=== PATIENT | female | born 1945 | race Caucasian/White ===

== ENCOUNTER → 2016-11-04 | Outpatient (REF) | payer OTHER ==
[2016-11-04 20:08] LABS: PERCENT SATURATION 18.7 % (13.2-37.4)
== END ==
LOC: M LAB REF 17:43
PROVIDERS: ATTEND Internal Medicine Nephrology
DX: N18.9 Chronic kidney disease, unspecified (principal); D63.1 Anemia in chronic kidney disease

== ENCOUNTER → 2017-01-07 | Outpatient (REF) | payer OTHER | LOC: M LAB REF 11:15 | DX: C44.329 Squamous cell carcinoma of skin of other parts of face (principal) ==

== ENCOUNTER → 2017-03-24 | Outpatient (CLI) | payer OTHER ==
--- NOTE | 2017-03-24 16:23 | REP ---
Nuclear renal scintigraphy with differential flow and function analysis: History: Chronic kidney disease, stage IV. Essential hypertension. No comparison studies. Technique: 8.8 mCi of technetium 99m MAG3 is injected and posterior flow and excretory phase images are acquired. Renal cortical regions of interest are drawn and time activity curves are plotted for renal function analysis. Scintigraphic findings: Posterior flow study shows symmetric albeit somewhat sluggish perfusion bilaterally. Excretory phase images show no evidence of intrarenal mass on either side. Renal collecting system labeling is observed bilaterally at 3 minutes and there is no evidence of obstructive uropathy. There is some retention of overall extra urinary body background activity consistent with impaired renal excretory function. Pre and postvoid images are unremarkable. Differential renal function analysis is normal with 54% of overall renal cortical counts coming from the left kidney and 46% coming from the right kidney. Time to peak activity is normal on the left at 3 minutes and the right at 2 minutes. Time to half max activity is delayed bilaterally measured at 25 minutes on the left and right. Normal time to half max activity is 10.5-11.0 minutes. Impression: Overall impaired renal excretory function. No evidence of obstructive uropathy. Symmetric renal bed perfusion. Signed by Etienne Estrada MD 03/24/2017 05:16 P
== END ==
LOC: M RAD 13:46
PROVIDERS: ATTEND Internal Medicine Nephrology
DX: N18.4 Chronic kidney disease, stage 4 (severe) (principal)

== ENCOUNTER → 2020-12-10 | Outpatient (REF) | payer MEDICARE, OTHER | LOC: M LAB REF 17:20 | PROVIDERS: ATTEND Internal Medicine Nephrology | DX: N18.4 Chronic kidney disease, stage 4 (severe) (principal) ==

== ENCOUNTER → 2021-04-13 | Outpatient (REF) | payer MEDICARE, OTHER | LOC: M LAB REF 17:19 | PROVIDERS: ATTEND Internal Medicine Nephrology | DX: N18.4 Chronic kidney disease, stage 4 (severe) (principal) ==

== ENCOUNTER → 2021-07-14 | Outpatient (REF) | payer MEDICARE, OTHER ==
[2021-07-14 18:55] LABS: FERRITIN 519 NG/ML (8-252); IRON (FE) 83 UG/DL (50-170); MAGNESIUM LEVEL 2.3 MG/DL (1.8-2.4); PERCENT SATURATION 27.9 % (13.2-45.0); TOTAL IRON BINDING CAPACITY 297 UG/DL (250-450); TOTAL PROTEIN 7.2 GM/DL (6.4-8.2)
[2021-07-15 10:36] LABS: ALBUMIN % 56.9 % (55.8-66.1); ALPHA-2-GLOBULINS 0.87 GM/DL (0.42-0.99); ALPHA-2-GLOBULINS % 12.1 % (7.1-11.8); BETA-1-GLOBULINS 0.38 GM/DL (0.28-0.60); BETA-1-GLOBULINS % 5.3 % (4.7-7.2); BETA-2-GLOBULINS 0.44 GM/DL (0.19-0.55); BETA-2-GLOBULINS % 6.1 % (3.2-6.5); GAMMA GLOBULIN % 14.6 % (11.1-18.8); GAMMA GLOBULINS 1.05 GM/DL (0.65-1.58)
[2021-07-16 18:07] LABS: FREE KAPPA LIGHT CHAINS SERUM 77.9 mg/L (3.3-19.4); FREE LAMBDA LIGHT CHAINS SERUM 56.3 mg/L (5.7-26.3); KAPPA/LAMBDA RATIO SERUM 1.38 (0.26-1.65)
== END ==
LOC: M LAB REF 18:05
PROVIDERS: ATTEND Internal Medicine Nephrology
DX: N18.4 Chronic kidney disease, stage 4 (severe) (principal); D63.1 Anemia in chronic kidney disease

== ENCOUNTER → 2021-07-21 | Outpatient (CLI) | payer MEDICARE, OTHER ==
--- NOTE | 2021-07-21 13:42 | REP ---
INDICATION: CKD 4 COMPARISON: None. TECHNIQUE: Real time compression and duplex Doppler evaluation of the Bilateral upper extremity deep venous system is performed. FINDINGS: The Bilateral subclavian, jugular, axillary, brachial, basilic and cephalic veins are fully compressible where accessible with transducer pressure, and demonstrate no intraluminal thrombus and normal venous waveforms. There is no evidence of deep venous thrombosis. Right: Basilic vein size (mm)/ Cephalic vein size (mm) Upper humerus: 5/4 Lower humerus:5/5 Upper forearm: 3/2 Lower forearm/wrist: 4/2 Median cubital:4 Right arterial structures: Peak systolic velocity (cm/s)/waveform/size (mm) Axillary: 125.3/triphasic/5 Brachial: 104.3/triphasic/5 Radial: 64.0/triphasic/2 Ulnar:74.1/triphasic/2 Left: Basilic vein size (mm)/ Cephalic vein size (mm) Upper humerus: 4/4 Lower humerus:4/4 Upper forearm: 2/2 Lower forearm/wrist:1/2 Median cubital:2 Left arterial structures: Peak systolic velocity (cm/s)/waveform/size (mm) Axillary: 109.9/triphasic/5 Brachial: 70.8/triphasic/5 Radial: 59.4/triphasic/2 Ulnar: 70.0/triphasic/2 IMPRESSION: No evidence of deep venous thrombosis of the Bilateral upper extremity deep vein system. Arterial and venous sizes are given above. <Electronically signed by Dustin Abraham > 07/21/21 [id number]
== END ==
LOC: M RAD 12:05
PROVIDERS: ATTEND Internal Medicine Nephrology
DX: N18.4 Chronic kidney disease, stage 4 (severe) (principal)

== ENCOUNTER → 2021-08-28 | Outpatient (CLI) | payer MEDICARE, OTHER ==
[~2021-08-28] MED LIST: AMLO1TAB24 PO; CALC1CAP31 PO; EZET10TA21 PO; FISH1000 PO; IRON65TA2 PO; LUTE6CAP9 PO; METO1TAB33 PO; VITMTA PO
== END ==
LOC: M LABSMTC 11:05
PROVIDERS: ATTEND Anesthesiology
DX: Z01.812 Encounter for preprocedural laboratory examination (principal); Z20.822 Contact with and (suspected) exposure to COVID-19

== ENCOUNTER 2021-09-02 08:47 | Day surgery (SDC) | payer MEDICARE, OTHER ==
[~2021-09-02] VITALS: Ht 162.6 cm; Wt 80.5 kg
[~2021-09-02 08:47] MED LIST changes: +DESFLURANE 240 ML INHALANT As Ordered ONE; +LR 1,000 ML IV ONE
[2021-09-02 09:51] LABS: POTASSIUM SERUM 4.2 MEQ/L (3.5-5.1)
[2021-09-02] MEDS ORDERED: dexameTHASONE 4 MG/ML 1ML VIAL (J1100 PER 1MG) As Ordered ONE (11:00)
[2021-09-02] MEDS ORDERED: propofoL 200 MG/20 ML VIAL As Ordered ONE (11:00)
[2021-09-02] MEDS ORDERED: LIDOCAINE 2% 100MG/5ML SDV (FOR ANES.) As Ordered ONE (11:00)
[2021-09-02] MEDS ORDERED: fentaNYL 100 MCG/2 ML INJECTION (J3010) As Ordered ONE (11:00)
[2021-09-02] MEDS ORDERED: ONDANSETRON 4MG/2ML VIAL As Ordered ONE (11:00)
[2021-09-02] MEDS ORDERED: ACETAMINOPHEN 1000MG 100ML IV BTL (OFIRMEV) (J0131 PER 10MG) As Ordered ONE ×2 (11:50→14:55)
[2021-09-02] MEDS ORDERED: BUPIVACAINE HCL 0.5% 30 ML VIAL As Ordered ONE (12:26)
[2021-09-02] MEDS ORDERED: THROMBIN SOLN 5,000 UNITS VIAL As Ordered ONE (12:26)
[2021-09-02] MEDS: ceFAZolin SOD 1 GM in D5W MINI-BAG PLUS 50 ML IV ONE (12:53)
[2021-09-02] MEDS: LIDOCAINE 1% MDV 20ML VIAL As Ordered ONE (13:25)
[2021-09-02] MEDS ORDERED: BACITRACIN OINTMENT 30GM TUBE As Ordered ONE (13:29)
[2021-09-02] MEDS ORDERED: ePHEDrine SULFATE 25 MG/5 ML(5MG/ML) SYRINGE As Ordered ONE (15:07)
[2021-09-02] MEDS ORDERED: LR 1,000 ML IV SCH (15:50)
[2021-09-02] MEDS ORDERED: fentaNYL 100 MCG/2 ML INJECTION (J3010) IV PRN (15:50)
[2021-09-02] MEDS ORDERED: oxyCODONE 5MG TAB PO PRN (15:50)
[2021-09-02] MEDS ORDERED: ONDANSETRON 4MG/2ML VIAL IV PRN (15:50)
[2021-09-02 16:35] VITALS: BP 137/71
--- NOTE | 2021-09-03 00:40 | ECGEPIP ---
[facility] Test Date: 2021-09-02 Pat Name: VANE ALMANZAR Department: Room: - Gender: Female Disability Aide: PEEWEE : 1945 Requested By: JESUS Avila Order Number: [id number] Reading MD: Edvin Kimbrough Measurements Intervals [place] Rate: 60 P: 57 MD: [id number] QRS: 41 QRSD: 84 T: 60 QT: 406 QTc: 406 Interpretive Statements Normal sinus rhythm No prior tracing in the system Electronically Signed on 09-03-2021 0:40:17 EST by Edvin Kimbrough
--- NOTE | 2021-09-17 11:43 | ROOPDOC ---
[facility] Report Of Operation Report of Operation DATE OF PROCEDURE: 09/02/21 PREPROCEDURE DIAGNOSES: Renal failure POSTPROCEDURE DIAGNOSES: Renal failure PROCEDURE PERFORMED: Left arm Brachio-Cephalic AV fistula creation SURGEON: Padmini Puente MD ANESTHESIA: MAC and local ESTIMATED BLOOD LOSS: Approximately 10 mL. COMPLICATIONS: None REMARKS: Palpable radial pulse and thrill in fistula FINDINGS: Good size cephalic vein and brachial artery DESCRIPTION OF PROCEDURE: The patient was brought to the operating room and placed on the operating room table in supine position. After adequate anesthesia was was induced, the patients left arm was then prepped and draped in standard surgical fashion. A linear incision was made with a 15-blade scalpel in between the brachial artery and the cephalic vein; which were identified and marked under ultrasound guidance just proximal to the antecubital fossa. Dissection through subcutaneous tissue was performed using electrocautery. The cephalic vein was identified and dissected free from its surrounding tissues. Several branches were tied with 3-0 silk suture and ligated. A long segment of cephalic vein was freed. Attention was then made towards the brachial artery. The fascia was encountered and incised with Metzenbaum scissors. The neurovascular bundle was encountered and a 3 cm length of the brachial artery was isolated and encircled with silastic vessel loops proximally and distally. Patient was administered a bolus of 3000 units of IV heparin. The length of the cephalic vein was isolated and ligated distally at the level of the antecubital fossa using 2-0 silk suture. An arteriotomy was created with an 11-blade scalpel and extended with Sloan scissors on the brachial artery. The end of the cephalic vein was trimmed for appropriate length and an end-to-side anastomosis was created with two 6-0 Prolene sutures. Local intra-arterial heparinization was administered for this segment of the procedure. Upon release of the silastic loops, prograde flow into the brachial artery was permitted, with good hemostasis. A good palpable thrill was noted along the length of the fistula. There was also a good palpable radial pulse. The wound was irrigated and then closed in layers using 2-0 and 4-0 Vicryl sutures. The skin closed using running 4-0 Monocryl. Dermabond, sterile dressings and an NAOMIE wrap were then applied. The patient tolerated the procedure well and was transferred to recovery room in stable condition. PADMINI PUENTE MD Sep 02, 2021 15:44
== END 2021-09-02 16:39 | disposition home or self-care (01) ==
LOC: M SDC 08:47
PROVIDERS: ATTEND Surgery Vascular Surgery
DX: N18.4 Chronic kidney disease, stage 4 (severe) (principal); D63.1 Anemia in chronic kidney disease; I12.9 Hypertensive chronic kidney disease with stage 1 through stage 4 chronic kidney disease, or unspecified chronic kidney disease; N25.81 Secondary hyperparathyroidism of renal origin; Z79.899 Other long term (current) drug therapy; Z88.8 Allergy status to other drugs, medicaments and biological substances; Z90.710 Acquired absence of both cervix and uterus
CPT/HCPCS: 36415; 36821; 84132; 93005; J0131; J0690; J1100; J1644; J2405; J3010; U0002

== ENCOUNTER → 2021-10-14 | Outpatient (REF) | payer MEDICARE, OTHER ==
[~2021-10-14] MED LIST changes: -DESFLURANE 240 ML INHALANT As Ordered ONE; -LR 1,000 ML IV ONE
== END ==
LOC: M LAB REF 12:51
PROVIDERS: ATTEND Internal Medicine Nephrology
DX: N18.4 Chronic kidney disease, stage 4 (severe) (principal)

== ENCOUNTER → 2021-11-25 | Outpatient (CLI) | payer MEDICARE, OTHER | LOC: M RAD 13:00 | PROVIDERS: ATTEND Nurse Practitioner Family | DX: T82.590A Other mechanical complication of surgically created arteriovenous fistula, initial encounter (principal); N18.4 Chronic kidney disease, stage 4 (severe) ==

== ENCOUNTER → 2023-03-10 | Outpatient (REF) | payer MEDICARE, OTHER, BC ==
[2023-03-10 18:43] LABS: PERCENT SATURATION 25.6 % (13.2-45.0)
== END ==
LOC: M LAB REF 17:17
PROVIDERS: ATTEND Nurse Practitioner Family
DX: D50.9 Iron deficiency anemia, unspecified (principal)

== ENCOUNTER 2023-04-19 09:52 | Day surgery (SDC) | payer MEDICARE, BC ==
[~2023-04-19] VITALS: Ht 165.1 cm; Wt 73.5 kg
[~2023-04-19 09:52] MED LIST changes: +NS 1,000 ML IV ONE; +PRES10CA2 PO; +RENATAB6 PO
[2023-04-19] MEDS ORDERED: propofoL 200 MG/20 ML VIAL As Ordered ONE ×2 (10:50→12:47)
[2023-04-19 13:12] VITALS: BP 154/67; O2SAT 100
== END 2023-04-19 13:14 | disposition home or self-care (01) ==
LOC: M OPP 09:52
PROVIDERS: ATTEND Internal Medicine Gastroenterology
DX: D12.0 Benign neoplasm of cecum (principal); Z98.0 Intestinal bypass and anastomosis status; K57.30 Diverticulosis of large intestine without perforation or abscess without bleeding; R19.4 Change in bowel habit; Z80.0 Family history of malignant neoplasm of digestive organs; Z79.899 Other long term (current) drug therapy; Z88.6 Allergy status to analgesic agent

== ENCOUNTER → 2024-11-22 | Outpatient (REF) | payer MEDICARE, OTHER, BC ==
[~2024-11-22] MED LIST changes: -NS 1,000 ML IV ONE
[2024-11-22 18:57] LABS: HEPATITIS B SURFACE ANTIBODY POSITIVE (POSITIVE)
[2024-11-22 19:08] LABS: HEPATITIS B SURFACE ANTIGEN NEGATIVE (NEGATIVE)
[2024-11-22 19:29] LABS: HEPATITIS B CORE ANTIBODY IGM NEGATIVE (NEGATIVE); HEPATITIS C VIRUS ABY INDEX 0.05 INDEX (<0.8)
== END ==
LOC: M LAB REF 17:27
PROVIDERS: ATTEND Nurse Practitioner Family
DX: N18.6 End stage renal disease (principal); Z11.59 Encounter for screening for other viral diseases

== ENCOUNTER → 2025-06-03 | Outpatient (REF) ==
[~2025-06-03] MED LIST changes: -EZET10TA21 PO; +EZET10TA57 PO
== END ==
LOC: M CFLAB 13:14
DX: Z01.89 Encounter for other specified special examinations (principal)

== ENCOUNTER 2025-06-11 16:24 | Outpatient (CLI) | payer MEDICARE, BC ==
[2025-06-11 16:47] VITALS: BP 135/63; O2SAT 98
[2025-06-11] MEDS: BELATACEPT IV ONE (17:13)
[2025-06-11] MEDS: NS IV ONE (17:13)
[2025-06-11 17:51] VITALS: BP 149/65; O2SAT 99
== END 2025-06-11 17:49 ==
LOC: M INFU 16:24
PROVIDERS: ATTEND Internal Medicine Nephrology
DX: Z94.0 Kidney transplant status (principal); Z88.8 Allergy status to other drugs, medicaments and biological substances
CPT/HCPCS: 96365; J0485

== ENCOUNTER 2025-06-25 16:18 | Outpatient (CLI) | payer MEDICARE, BC ==
[~2025-06-25] VITALS: Ht 157.5 cm; Wt 64.0 kg
[2025-06-25 16:49] VITALS: BP 152/74; O2SAT 98
[2025-06-25] MEDS: NS IV ONE (16:59)
[2025-06-25] MEDS: BELATACEPT IV ONE (16:59)
[2025-06-25 17:45] VITALS: BP 139/65; O2SAT 99
== END 2025-06-25 17:45 ==
LOC: M INFU 16:18
PROVIDERS: ATTEND Internal Medicine Nephrology
DX: Z94.0 Kidney transplant status (principal); Z88.8 Allergy status to other drugs, medicaments and biological substances
CPT/HCPCS: 96365; J0485

== ENCOUNTER → 2025-07-05 | Outpatient (REF) | LOC: M LABCFH 13:23 | DX: N39.0 Urinary tract infection, site not specified (principal) ==

== ENCOUNTER 2025-07-09 16:09 | Outpatient (CLI) | payer MEDICARE, BC ==
[~2025-07-09] VITALS: Ht 157.5 cm; Wt 63.6 kg
[2025-07-09 16:10] VITALS: BP 162/72; O2SAT 99
[2025-07-09] MEDS: BELATACEPT IV ONE (16:57)
[2025-07-09] MEDS: NS IV ONE (16:57)
[2025-07-09 17:31] VITALS: BP 142/62; O2SAT 100
== END 2025-07-09 17:31 ==
LOC: M INFU 16:09
PROVIDERS: ATTEND Internal Medicine Nephrology
DX: Z94.0 Kidney transplant status (principal); Z88.8 Allergy status to other drugs, medicaments and biological substances
CPT/HCPCS: 96365; J0485

== ENCOUNTER 2025-08-06 15:38 | Outpatient (CLI) | payer MEDICARE, BC ==
[~2025-08-06] VITALS: Ht 157.5 cm; Wt 61.4 kg
[2025-08-06] MEDS: BELATACEPT IV ONE (16:02)
[2025-08-06] MEDS: NS IV ONE (16:02)
[2025-08-06 16:12] VITALS: BP 162/70; O2SAT 99
[2025-08-06 16:39] VITALS: BP 158/72; O2SAT 98
== END 2025-08-06 16:39 | disposition home or self-care (01) ==
LOC: M INFU 15:38
PROVIDERS: ATTEND Internal Medicine Nephrology
DX: Z94.0 Kidney transplant status (principal); Z88.8 Allergy status to other drugs, medicaments and biological substances
CPT/HCPCS: 96365; J0485

== ENCOUNTER 2025-09-03 16:27 | Outpatient (CLI) | payer MEDICARE, BC ==
[~2025-09-03] VITALS: Ht 157.5 cm; Wt 61.4 kg
[2025-09-03 16:40] VITALS: BP 159/70; O2SAT 98
[2025-09-03] MEDS: BELATACEPT IV ONE (17:39)
[2025-09-03] MEDS: NS IV ONE (17:39)
[2025-09-03 18:14] VITALS: BP 165/75; O2SAT 100
== END 2025-09-03 18:15 | disposition home or self-care (01) ==
LOC: M INFU 16:27
PROVIDERS: ATTEND Internal Medicine Nephrology
DX: Z94.0 Kidney transplant status (principal); Z88.8 Allergy status to other drugs, medicaments and biological substances
CPT/HCPCS: 96365; J0485

== ENCOUNTER → 2025-09-17 | Outpatient (REF) | LOC: M LAB REF 15:22 | DX: N39.0 Urinary tract infection, site not specified (principal) ==